=== PATIENT | male | born 1995 ===

== ENCOUNTER 2025-02-05 02:38 | Emergency (ER) | payer OTHER ==
[~2025-02-05] VITALS: Ht 175.3 cm; Wt 74.8 kg
[2025-02-05] MEDS ORDERED: TRUVADA 100 MG1 EAC1 PO (03:14)
== END 2025-02-05 04:29 | disposition home or self-care (01) ==
LOC: ER 02:38
DX: S01.81XA Laceration without foreign body of other part of head, initial encounter (principal); Z79.899 Other long term (current) drug therapy; Z59.89 Other problems related to housing and economic circumstances; W01.190A Fall on same level from slipping, tripping and stumbling with subsequent striking against furniture, initial encounter
CPT/HCPCS: 99283; L0160